=== PATIENT | male | born 1995 | race African-American/Black ===

== ENCOUNTER 2017-10-26 16:31 | Emergency (ER) | payer OTHER ==
--- NOTE | 2017-10-26 16:40 | ER Document Report ---
HPI - HPI Context: Patient is a 22-year-old male who has a chief complaint of STD exposure. Patient states that his sexual partner was recently diagnosed with chlamydia and he is requesting evaluation and treatment. He denies any pelvic discomfort , inguinal lymphadenopathy, penile discharge, pyuria. Patient admits to only one sexual partner. He denies any previous history of STDs. Patient states that he was recently checked 3 weeks ago prior to his sexual partner returning from another state. Otherwise healthy male. Past Medical History - Social History Smoking Status: Never Smoker Family History: Reviewed & Not Pertinent Vertical Provider Document - CONSTITUTIONAL Agree With Documented VS: Yes Notes: PHYSICAL EXAM GENERAL: Alert, interacts well. LUNGS: Clear to auscultation bilaterally, no wheezes, rales, or rhonchi. No respiratory distress. HEART: Regular rate and rhythm. No murmurs, gallops, or rubs. Male : Normal inspection without any evidence of lesions, open wounds. No palpable inguinal lymphadenopathy. Testicles nontender to palpation without any evidence of edema. No evidence of penile discharge. NEUROLOGICAL: Alert and oriented x4. Normal speech. PSYCH: Normal affect, normal mood. SKIN: Warm, dry, normal turgor. No rashes or lesions noted. Course - Re-evaluation Re-evalutation: 10/26/17 18:37 Patient is a 22-year-old male who is hemodynamically stable, no acute distress afebrile. Patient will be treated for exposure to chlamydia. Results pending. Patient given strict return precautions and otherwise educated on conservative management for his diagnosis. Patient agrees with plan stable for discharge home Discharge - Discharge Clinical Impression: Exposure to STD Condition: Good Disposition: HOME, SELF-CARE Additional Instructions: You have been treated for chlamydia. Please abstain from sexual intercourse for 1 week. Make sure that all your sexual partners are tested and treated. Please return with any symptoms concerning for recurrence such as discharge, pyuria, pain.
[2017-10-26 16:49] VITALS: BP 109/65
[2017-10-26] MEDS ORDERED: CEFTRIAXONE INJ 250 MG VIAL IM ONE (17:05)
[2017-10-26] MEDS ORDERED: AZITHROMYCIN 250 MG TABLET PO ONE (17:05)
[2017-10-26] MEDS ORDERED: LIDOCAINE 1% INJ-PF (10 MG/ML) 30 ML SDV INJ ONE (17:05)
[2017-10-26 18:49] LABS: CHLAM PCR DETECTED (NOT DETECT); GON PCR NOT DETECTED (NOT DETECT)
== END 2017-10-26 18:06 | disposition home or self-care (01) ==
LOC: ER 16:31
DX: Z20.2 Contact with and (suspected) exposure to infections with a predominantly sexual mode of transmission (principal)
CPT/HCPCS: 99283; 96372; 87491; 87591; J3490; J0696

== ENCOUNTER 2018-01-20 19:53 | Emergency (ER) | payer OTHER ==
[2018-01-20] MEDS ORDERED: LIDOCAINE 1% INJ-PF (10 MG/ML) 30 ML SDV INJ ONE (21:21)
[2018-01-20] MEDS ORDERED: CEFTRIAXONE INJ 250 MG VIAL IM ONE (21:21)
--- NOTE | 2018-01-20 21:25 | ER Document Report ---
HPI - HPI Patient complains to provider of: Penile discharge Pain Level: Denies Context: Patient is a 22 year old male that comes to the ED for chief complaint of painful urination and penile discharge for the past 5 days. He states he has been exposed to chlamydia once before from his , he states that he suspects infidelity again, he denies any rash, fever, abdominal pain, or any other complaints. He denies any daily medications or medical history otherwise. Past Medical History - General Information source: Patient - Social History Smoking Status: Never Smoker Chew tobacco use (# tins/day): No Frequency of alcohol use: Rare Drug Abuse: None Lives with: Family Family History: Reviewed & Not Pertinent Patient has suicidal ideation: No Patient has homicidal ideation: No - Medical History Medical History: Negative Renal/ Medical History: Denies: Hx Peritoneal Dialysis Past Surgical History: Reports: Hx Oral Surgery - Immunizations Immunizations up to date: Yes Hx Diphtheria, Pertussis, Tetanus Vaccination: Yes Vertical Provider Document - CONSTITUTIONAL General Appearance: WD/WN, No Apparent Distress - INFECTION CONTROL TRAVEL OUTSIDE OF THE [place] IN LAST 30 DAYS: No - HEENT HEENT: Atraumatic, Normal ENT Exam, Normocephalic - NECK Neck: Normal Inspection - RESPIRATORY Respiratory: Breath Sounds Normal, No Respiratory Distress - CARDIOVASCULAR Cardiovascular: Regular Rate, Regular Rhythm - GI/ABDOMEN Gastrointestinal: Abdomen Soft, Abdomen Non-Tender - REPRODUCTIVE Male Genitalia: Normal Inspection - No rashes, lesions, noted tenderness, or other abnormality noted. No lymphadenopathy noted. Barbara CREWS present at bedside.. negative: Abnormal Inspection - BACK Back: Normal Inspection - MUSCULOSKELETAL/EXTREMETIES Musculoskeletal/Extremeties: MAEW, FROM, Non-Tender - NEURO Level of Consciousness: Awake, Alert, Appropriate - DERM Integumentary: Warm, Dry, No Rash Course - Re-evaluation Re-evalutation: Patient with symptoms reported consistent with either gonorrhea or chlamydia. No evidence of other STD on examination with no rash, no other symptoms reported. Patient will be treated with Rocephin, doxycycline, and Flagyl especially after recent treatment with azithromycin and questionable results. This was discussed in detail with patient. Results delayed, patient will be discharged with treatment pending results, patient states he will follow-up with his results later. - Vital Signs Vital signs: Temp Pulse Resp BP Pulse Ox 98.9 F 66 15 114/79 97 01/20/18 20:05 01/20/18 20:05 01/20/18 20:05 01/20/18 20:05 01/20/18 20:05 Discharge - Discharge Clinical Impression: Penile discharge Condition: Stable Disposition: HOME, SELF-CARE Additional Instructions: You have been covered for pelvic infection, coverage includes gonorrhea, chlamydia, and Trichomonas. To complete this coverage complete the antibiotics prescribed as directed. Do not have intercourse for 7-10 days. Follow-up with primary care. Return if you worsen including abdominal pain, fever, or any other concerning or worsening symptoms. Prescriptions: Doxycycline Hyclate 100 mg PO BID #14 capsule Metronidazole [Flagyl 500 mg Tablet] 500 mg PO BID #14 tablet
[2018-01-20] MEDS ORDERED: DOXYCYCLINE HYCLATE 100 MG TABLET PO ONE (21:26)
[2018-01-20 21:38] VITALS: BP 121/72
[2018-01-20 22:30] LABS: CHLAM PCR NOT DETECTED (NOT DETECT); GON PCR DETECTED (NOT DETECT)
== END 2018-01-20 21:41 | disposition home or self-care (01) ==
LOC: ER 19:53
DX: R36.9 Urethral discharge, unspecified (principal); R30.0 Dysuria; Z20.2 Contact with and (suspected) exposure to infections with a predominantly sexual mode of transmission
CPT/HCPCS: 99283; 96372; 87491; 87591; J3490; J0696

== ENCOUNTER 2018-02-18 19:11 | Emergency (ER) | payer OTHER ==
[2018-02-18 19:31] VITALS: BP 111/68
--- NOTE | 2018-02-18 19:35 | ER Document Report ---
HPI - HPI Patient complains to provider of: Cut on his pain is worse after being in the field Onset: Other - 2-3 weeks Pain Level: 2 Context: 22-year-old [employer] male treated with metronidazole and doxycycline and also given a shot for chlamydia and trichomonas 3 weeks ago from a sick call, had a small cut on his uncircumcised penis foreskin which she gets during a hot dry season. It was starting to get better until he went to the field last week and it is now irritated again he wants me to check it. No history of HSV. Associated Symptoms: None Exacerbated by: Other - the lesions on the ventral side are tender Relieved by: Denies Similar symptoms previously: Yes Recently seen / treated by doctor: No - ROS ROS below otherwise negative: Yes Systems Reviewed and Negative: Yes All other systems reviewed and negative Past Medical History - General Information source: Patient - Social History Smoking Status: Unknown if Ever Smoked Occupation: [employer] Lives with: Family Family History: Reviewed & Not Pertinent - Medical History Medical History: Negative Renal/ Medical History: Denies: Hx Peritoneal Dialysis Past Surgical History: Reports: Hx Oral Surgery - Immunizations Immunizations up to date: Yes Hx Diphtheria, Pertussis, Tetanus Vaccination: Yes Vertical Provider Document - CONSTITUTIONAL Agree With Documented VS: Yes Exam Limitations: No Limitations Notes: 22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 He is uncircumcised. He went out to the field and those areas on his foreskin became more irritated. No history of HSV or syphilis. - INFECTION CONTROL TRAVEL OUTSIDE OF THE [place] IN LAST 30 DAYS: No - NEURO Level of Consciousness: Awake, Alert - DERM Integumentary: Rash - Dorsal aspect of foreskin has multiple linear ulcerations that are tender, ventral aspect has a round shallow ulceration that is nontender suspicious for a syphilis chancre. I will also test for HSV. Course - Re-evaluation Re-evalutation: 02/19/18 19:15 RPR is negative. HSV is pending. - Vital Signs Vital signs: Temp Pulse Resp BP Pulse Ox 98.6 F 82 111/68 100 02/18/18 19:30 02/18/18 19:30 02/18/18 19:30 02/18/18 19:30 Discharge - Discharge Clinical Impression: foreskin ulcerations Condition: Good Disposition: HOME, SELF-CARE Instructions: Acyclovir ([facility]), Ulcer ([facility]) Additional Instructions: Syphilis test is pending Your herpes pending Bacitracin to the lesions See your doctor at sick call tomorrow Prescriptions: Acyclovir [Acyclovir 400 mg Tablet] 400 mg PO TID #30 tablet
[2018-02-18] MEDS ORDERED: PENICILLIN G BENZATHINE 1.2 MILLION UNIT/2 ML DISP.SYRIN IM ONE (19:54)
== END 2018-02-18 20:29 | disposition home or self-care (01) ==
LOC: ER 19:11
DX: N48.5 Ulcer of penis (principal)
CPT/HCPCS: 99283; 96372; 36415; 86592; 87250; J0561

== ENCOUNTER 2018-05-17 18:31 | Emergency (ER) | payer OTHER ==
[2018-05-17 18:50] VITALS: BP 114/74
[2018-05-17] MEDS ORDERED: AZITHROMYCIN 250 MG TABLET PO ONE (19:36)
[2018-05-17] MEDS ORDERED: CEFTRIAXONE INJ 250 MG VIAL IM ONE (19:36)
[2018-05-17] MEDS ORDERED: LIDOCAINE 1% INJ-PF (10 MG/ML) 30 ML SDV INJ ONE (19:36)
--- NOTE | 2018-05-17 19:52 | ER Document Report ---
HPI - HPI Patient complains to provider of: Penile pain and drainage Time Seen by Provider: 05/17/18 19:05 Onset: Last week Onset/Duration: Gradual Quality of pain: Burning Pain Level: Denies Context: Patient states he was seen here in January and diagnosed with some STDs and he ran out of the medicine and he needs refills on them. Patient is an active duty [employer]. He states he does not like to go to [place]. He was diagnosed with herpes simplex 2 and gonorrhea. He was prescribed acyclovir and he said a couple of the medicines he does not remember the names of. He does not have an outbreak of herpes at this time he stated he does have the pain and drainage. And he has had unprotected sex since his last treatment. Associated Symptoms: Other - Penile pain and drainage Exacerbated by: Denies Relieved by: Denies Similar symptoms previously: Yes Recently seen / treated by doctor: No - ROS ROS below otherwise negative: Yes - CONSTITUTIONAL Constitutional: DENIES: Fever, Chills - EENT EENT: DENIES: Sore Throat, Ear Pain, Nasal Drainage-Clear, Nasal Drainage- Purulent, Congestion, Eye problems - NEURO Neurology: DENIES: Headache, Weakness, Vision blurred, Dizzinesss / Vertigo - CARDIOVASCULAR Cardiovascular: DENIES: Chest pain - RESPIRATORY Respiratory: DENIES: Trouble Breathing, Coughing - GASTROINTESTINAL Gastrointestinal: DENIES: Abdominal Pain, Nausea, Patient vomiting, Diarrhea, Constipation, Black / Bloody Stools - URINARY Urinary: REPORTS: Dysuria, Frequency - REPRODUCTIVE Reproductive: DENIES: :, Postmenopausal, Abnormal bleeding / discharge - MUSCULOSKELETAL Musculoskeletal: DENIES: Extremity pain, Back Pain, Neck Pain, Swelling - DERM Skin Color: Normal Skin Problems: None Past Medical History - General Information source: Patient - Social History Smoking Status: Former Smoker Cigarette use (# per day): No Chew tobacco use (# tins/day): No Smoking Education Provided: No Frequency of alcohol use: Occasional Drug Abuse: None Occupation: marine Family History: Reviewed & Not Pertinent Patient has suicidal ideation: No Patient has homicidal ideation: No - Past Medical History Cardiac Medical History: Reports: None Pulmonary Medical History: Reports: None EENT Medical History: Reports: None Neurological Medical History: Reports: None Endocrine Medical History: Reports: None Renal/ Medical History: Reports: Other - std in January 2018 returned in April 2018 for the same symptoms Malignancy Medical History: Reports None GI Medical History: Reports: None Musculoskeletal Medical History: Reports None Skin Medical History: Reports None Psychiatric Medical History: Reports: None Traumatic Medical History: Reports: None Infectious Medical History: Reports: None Past Surgical History: Reports: Hx Oral Surgery - Immunizations Immunizations up to date: Yes Hx Diphtheria, Pertussis, Tetanus Vaccination: Yes Vertical Provider Document - CONSTITUTIONAL Agree With Documented VS: Yes Exam Limitations: No Limitations General Appearance: WD/WN, No Apparent Distress - INFECTION CONTROL TRAVEL OUTSIDE OF THE [place] IN LAST 30 DAYS: No - HEENT HEENT: Atraumatic, Normal ENT Exam, Normocephalic, PERRLA - NECK Neck: Normal Inspection, Supple - RESPIRATORY Respiratory: Breath Sounds Normal, No Respiratory Distress, Chest Non-Tender - REPRODUCTIVE Notes: Yellowish pale penile drainage with drainage under the foreskin. No ulcerations no rashes no swelling noted. No signs of some symptoms of herpes rash at this time. No chancre noted. He was positive for gonorrhea and herpes simplex 2 last visit. He states she has had unprotected sex again. - MUSCULOSKELETAL/EXTREMETIES Musculoskeletal/Extremeties: MAEW, FROM, Non-Tender - NEURO Level of Consciousness: Awake, Alert, Appropriate Course - Re-evaluation Re-evalutation: 05/17/18 20:42 Patient has been treated with Rocephin and azithromycin for his penile drainage. He will call me tomorrow for the results of his test. I will be here from 2 PM to 2 AM and he has the number to call. Patient has been given instructions on safe sex. - Vital Signs Vital signs: Temp Pulse Resp BP Pulse Ox 98.0 F 74 16 114/74 99 05/17/18 18:44 05/17/18 18:44 05/17/18 18:44 05/17/18 18:44 05/17/18 18:44 Discharge - Discharge Clinical Impression: Urethritis Condition: Stable Disposition: HOME, SELF-CARE Additional Instructions: Urethritis You have urethritis, an infection of the urethra. The usual symptoms are pain on urination and discharge. The infection is often caused by gonorrhea or chlamydia. Treatment is antibiotics. In addition, any sexual contacts should be evaluated by a physician as soon as possible. As this infection can be transmitted sexually, refrain from sexual activity until the infection is confirmed as healed by your physician. If gonorrhea or chlamydia is found on culture, the health department must be notified. Call the doctor at once if you develop difficulty passing your urine, high fever, rash, joint swelling, or other new symptoms. CEPHALOSPORINS: An antibiotic of the cephalosporin class has been prescribed. This type of antibiotic covers a wide variety of infections, including those of the skin, lungs, middle ear, and urinary tract. This antibiotic is somewhat similar to the penicillin family. In rare cases , a person who is allergic to penicillin will also be allergic to this medication. If you have had a severe allergic reaction to penicillin, and have not taken this antibiotic since that time, notify your doctor. Antibiotics which cover many germs ("broad spectrum" antibiotics) are more likely to cause diarrhea or "yeast" infections. Women prone to vaginal yeast problems may suffer an attack after taking this antibiotic. In infants, oral thrush (white spots "stuck" on the cheek) or yeast diaper rash may result. See your doctor if these problems occur. Call the doctor at once if you develop hives, itching, shortness of breath , or lightheadedness. AZITHROMYCIN: Azithromycin (Zithromax) is a broad spectrum antibiotic in the same class as erythromycin. It can treat a variety of bacterial infections, but is most frequently used for respiratory infections. Azithromycin is extremely long-lasting. It accumulates in body tissues and continues to kill bacteria for many days. In order to improve absorption, Azithromycin should be taken at least one hour before or two hours after a meal. It does not have the same strong tendency to upset the stomach as erythromycin and is usually very well tolerated. Patients who have had a rash or other true allergic reactions to erythromycin should not take this medication. Call if you develop gastrointestinal distress, severe diarrhea, rash, hives, itching, or shortness of breath. FOLLOW-UP CARE: If you have been referred to a physician for follow-up care, call the physician s office for an appointment as you were instructed or within the next two days. If you experience worsening or a significant change in your symptoms, notify the physician immediately or return to the Emergency Department at any time for re-evaluation. Please follow-up with your provider for refills of your herpes medication and any other medications you may need.
[2018-05-17 20:21] LABS: APPEARANCE,URINE CLEAR; BILIRUBIN,URINE NEGATIVE (NEGATIVE); COLOR,URINE STRAW; GLUCOSE, URINE NEGATIVE (NEGATIVE); KETONES,URINE NEGATIVE (NEGATIVE); LEUKOCYTE ESTERASE,URINE TRACE (NEGATIVE); NITRITE,URINE NEGATIVE (NEGATIVE); PROTEIN,URINE NEGATIVE (NEGATIVE); URINE SPECIFIC GRAVITY 1.015; UROBILINOGEN,URINE NEGATIVE mg/dL (<2.0)
[2018-05-17 21:42] LABS: CHLAM PCR NOT DETECTED (NOT DETECT); GON PCR DETECTED (NOT DETECT)
== END 2018-05-17 20:40 | disposition home or self-care (01) ==
LOC: ER 18:31
DX: N34.2 Other urethritis (principal); N48.89 Other specified disorders of penis; Z87.891 Personal history of nicotine dependence
CPT/HCPCS: 99282; 96372; 81001; 87491; 87591; J3490; J0696

== ENCOUNTER 2018-11-03 21:18 | Emergency (ER) | payer OTHER ==
[2018-11-04] MEDS ORDERED: CEFTRIAXONE INJ 250 MG VIAL IM ONE (00:54)
[2018-11-04] MEDS ORDERED: LIDOCAINE 1% INJ (10 MG/ML) 10 ML MDV INJ ONE (00:55)
[2018-11-04] MEDS ORDERED: AZITHROMYCIN 250 MG TABLET PO ONE (00:55)
--- NOTE | 2018-11-04 01:01 | ER Document Report ---
ED General - General Chief Complaint: STD Exposure Stated Complaint: POSSIBLE STD EXPOSURE Time Seen by Provider: 11/04/18 00:44 Mode of Arrival: Ambulatory Information source: Patient TRAVEL OUTSIDE OF THE [place] IN LAST 30 DAYS: No - HPI Patient complains to provider of: Itchy rash in groin, urethral drainage Onset: Last week Onset/Duration: Persistent Quality of pain: No pain Severity: Mild Pain Level: 1 Associated symptoms: None Exacerbated by: Denies Relieved by: Denies Similar symptoms previously: No Recently seen / treated by doctor: No Notes: Patient is a 23-year-old -[place] male coming in today chief complaint of itchy rash in his groin. Also having some urethral discharge that sleeving damp spots in his underpants. - Related Data Allergies/Adverse Reactions: No Known Allergies Allergy (Unverified 10/26/17 16:46) Past Medical History - General Information source: Patient - Social History Smoking Status: Smoker,Current Status Unk Family History: Reviewed & Not Pertinent Renal/ Medical History: Denies: Hx Peritoneal Dialysis Past Surgical History: Reports: Hx Oral Surgery - Immunizations Immunizations up to date: Yes Hx Diphtheria, Pertussis, Tetanus Vaccination: Yes Review of Systems - Review of Systems Notes: Constitutional: No fevers. No chills. EENT: No eye redness. No eye pain. No ear pain. No sore throat. Cardiovascular: No chest pain. No palpitations. Respiratory: No cough. No shortness of breath. No respiratory distress. Gastrointestinal: No abdominal pain. No nausea, vomiting, or diarrhea. Genitourinary: Positive for a small clear urethral discharge Musculoskeletal: Atraumatic. No swelling. No deformities. Skin: Positive for rash in groin bilaterally Lymphatic: No swollen lymph nodes. Neurologic: No headache. No syncope. Psychiatric: No suicidal or homicidal ideation. Physical Exam - Vital signs Vitals: Temp Pulse Resp BP Pulse Ox 98.8 F 74 17 125/74 100 11/03/18 21:48 11/03/18 21:48 11/03/18 21:48 11/03/18 21:48 11/03/18 21:48 - Notes Notes: General: Well-developed, well-nourished. In no acute distress. Non-toxic appearing. Cardiac: Well-perfused. Regular rate and rhythm. No murmurs, rubs, or gallops. Pulmonary: No respiratory distress. No cyanosis. Bilateral lung fiels are clear to auscultation. Abdominal: Non-distended. Non-rigid. Bowels sounds are present in all four quadrants. No guarding or rebound. HEENT: Head is atraumatic. Conjunctivae not reddened. No tearing. PERRL. EOMI. Orbits atraumatic. No periorbital swelling or erythema. Oropharynx is without erythema, swelling, or exudates. Neck: Supple. No adenopathy. No meningismus. Dermatologic: Excoriated dry nonspecific rash to the groin bilaterally. Chest: Atraumatic. No chest wall tenderness to palpation. Musculoskeletal: Moves all extremities well. No range of motion deficits. no muscular or joint tenderness. No paraspinal muscle tenderness. no midline spinal tenderness or step-off. Genitourinary: External genitalia grossly normal. No lesions. No swelling. Nontender Neurologic: No gross neurologic deficits. Psychiatric: Normal mood. Course - Vital Signs Vital signs: Temp Pulse Resp BP Pulse Ox 98.8 F 74 17 125/74 100 11/03/18 21:48 11/03/18 21:48 11/03/18 21:48 11/03/18 21:48 11/03/18 21:48 Discharge - Discharge Clinical Impression: Urethritis, Tinea cruris Condition: Good Disposition: HOME, SELF-CARE Instructions: Urethritis ([facility]) Additional Instructions: The rash that you have developed in your groin and in between your thighs is called jock itch. He can go to the pharmacy and get [id number] cream both brand names and as generics that can treat this infection the most important thing is to keep the area clean and dry. Some people will wear loose fitting underwear and will change it multiple times a day to make sure that the area does not stay damp. Also you have been treated for both gonorrhea and chlamydia. This test results should be done after several hours. You are cured of both of these with the treatment given here. However if you come in contact with it again it is possible to get it again. Be sure to know your partners status. Referrals: [facility] [NO LOCAL MD] - Follow up as needed
[2018-11-04 01:20] VITALS: BP 118/78
== END 2018-11-04 01:20 | disposition home or self-care (01) ==
LOC: ER 21:18
DX: N34.2 Other urethritis (principal); B35.6 Tinea cruris; Z20.2 Contact with and (suspected) exposure to infections with a predominantly sexual mode of transmission; R21 Rash and other nonspecific skin eruption; R36.9 Urethral discharge, unspecified; F17.200 Nicotine dependence, unspecified, uncomplicated
CPT/HCPCS: 99283; 96372; J0696